=== PATIENT | female | born 1980 | race Caucasian/White ===

== ENCOUNTER → 2017-09-20 | Outpatient (CLI) | payer OTHER ==
--- NOTE | 2017-09-21 08:57 | MM ---
Reason for exam: clinical finding. Last mammogram was performed 6 years and 4 months ago. History: Patient had first child at age 29. Indicated problem(s): lump or thickening in both breasts. Physical Findings: Nurse did not find any significant physical abnormalities on exam. MG 3D Diag Mammo W/Cad JORGITO Bilateral CC and MLO view(s) were taken. Prior study comparison: May 07, 2011, CAD bilateral diagnostic mammogram. The breast tissue is extremely dense which could obscure a lesion on mammography. Stable benign calcifications. These results were verbally communicated with the patient and result sheet given to the patient on 09/20/17. ASSESSMENT: Probably benign, BI-RAD 3 RECOMMENDATION: Follow-up diagnostic mammogram and ultrasound of both breasts in 6 months.
--- NOTE | 2017-09-21 09:05 | USB ---
Reason for exam: clinical finding. History: Patient had first child at age 29. Indicated problem(s): lump or thickening in both breasts. US Breast BILAT Right breast ultrasound includes all four quadrants, the retroareolar region and axilla. Finding demonstrates a 1.1 x 0.7 x 0.9cm oval, cystic lesion at 9 o'clock and a 0.7 x 0.6 x 0.9cm oval, cystic lesion at 4 o'clock. Left breast ultrasound includes all four quadrants, the retroareolar region and axilla. Finding demonstrates a 0.5 x 0.4 x 0.5cm oval, cystic lesion at 2 o'clock, a 1.5 x 0.9 x 1.1cm oval, cystic lesion at 3 o'clock, a 1.1 x 0.5 x 1.5cm oval, cystic lesion at 6 o'clock and a 1.9 x 1.2cm oval, cystic cluster at 12 o'clock. These results were verbally communicated with the patient and result sheet given to the patient on 09/20/17. ASSESSMENT: Probably benign, BI-RAD 3 RECOMMENDATION: Follow-up diagnostic mammogram of both breasts in 6 months.
== END ==
LOC: RADMAMWWP 08:06
PROVIDERS: ATTEND Obstetrics & Gynecology
DX: N63.0 Unspecified lump in unspecified breast (principal)
CPT/HCPCS: 76641; G0204; G0279

== ENCOUNTER → 2018-06-12 | Outpatient (CLI) | payer OTHER ==
--- NOTE | 2018-06-12 11:45 | MM ---
Reason for exam: follow-up at short interval from prior study. Last mammogram was performed 9 months ago. History: Patient had first child at age 29. Took hormonal contraceptives for 3 years beginning at age 17. Physical Findings: Nurse Summary: 1cm nodule in the left breast at 1 o'clock (nurse ms). MG 3D Diag Mammo W/Cad JORGITO Bilateral CC, MLO, and XCCL view(s) were taken. Prior study comparison: September 20, 2017, bilateral MG 3d diag mammo w/cad J[facility]GITO. May 07, 2011, CAD bilateral diagnostic mammogram. The breast tissue is extremely dense which could obscure a lesion on mammography. Scattered benign punctate calcifications. Palpable marker lateral left breast. Subtle nodularity superior right MLO view anterior to middle depth best seen on 3D. These results were verbally communicated with the patient and result sheet given to the patient on 06/12/18. ASSESSMENT: Incomplete: need additional imaging evaluation, BI-RAD 0 RECOMMENDATION: Ultrasound of both breasts.
--- NOTE | 2018-06-12 11:52 | USB ---
Reason for exam: additional evaluation requested from abnormal screening. History: Patient had first child at age 29. Took hormonal contraceptives for 3 years beginning at age 17. US Breast BILAT Right complete breast ultrasound includes all four quadrants, the retroareolar region and axilla. Finding demonstrates a 0.7 x 0.3 x 1.1cm oval, cystic lesion at 7 o'clock, a 0.6 x 0.6 x 0.4cm cystic cluster at 1 o'clock and a 0.6 x 0.5 x 0.6cm oval, cystic lesion at 3 o'clock. Left complete breast ultrasound includes all four quadrants, the retroareolar region and axilla. Finding demonstrates a 1.9 x 0.6 x 1.4cm oval, cystic, palpable, benign lesion at 1 o'clock, a 1.4 x 0.9 x 0.9cm oval, cystic lesion at 3 o'clock and a 1.3 x 0.7 x 1.7cm oval, cystic lesion at 6 o'clock. These results were verbally communicated with the patient and result sheet given to the patient on 06/12/18. ASSESSMENT: Probably benign, BI-RAD 3 RECOMMENDATION: Follow-up diagnostic mammogram of both breasts in 1 year.
== END | disposition home or self-care (01) ==
LOC: RADMAMWWP 08:29
PROVIDERS: ATTEND Obstetrics & Gynecology
DX: R92.8 Other abnormal and inconclusive findings on diagnostic imaging of breast (principal)
CPT/HCPCS: 77062; 77066

== ENCOUNTER → 2020-10-15 | Outpatient (CLI) | payer OTHER ==
--- NOTE | 2020-10-15 14:02 | MM ---
Reason for exam: screening (asymptomatic). Last mammogram was performed 2 years and 4 months ago. History: Patient had first child at age 29. Took hormonal contraceptives for 3 years beginning at age 17. Physical Findings: A clinical breast exam by your physician is recommended on an annual basis and results should be correlated with mammographic findings. MG 3D Screening Mammo W/Cad Bilateral CC and MLO view(s) were taken. Prior study comparison: June 12, 2018, bilateral MG 3d diag mammo w/cad JORGITO. September 20, 2017, bilateral MG 3d diag mammo w/cad J[facility]GITO. The breast tissue is extremely dense which could obscure a lesion on mammography. There are benign appearing diffuse round calcifications bilaterally. There is no discrete abnormality. ASSESSMENT: Benign, BI-RAD 2 RECOMMENDATION: Routine screening mammogram of both breasts in 1 year. Some advise bilateral ultrasound is patient with extremely dense tissue.
== END | disposition home or self-care (01) ==
LOC: RADMAMWWP 09:00
PROVIDERS: ATTEND Obstetrics & Gynecology
DX: Z12.31 Encounter for screening mammogram for malignant neoplasm of breast (principal); Z80.3 Family history of malignant neoplasm of breast
CPT/HCPCS: 77063; 77067

== ENCOUNTER → 2023-06-24 | Outpatient (CLI) | payer OTHER ==
--- NOTE | 2023-06-27 08:21 | MM ---
Reason for Exam: Screening (asymptomatic). Last mammogram was performed 2 year(s) and 9 month(s) ago. Patient History: Menarche at age 12. First Full-Term at age 29. Late child-bearing (after 28). Patient has history of breast feeding. Hormonal Contraceptives for 3 years from age 17 until age 20. Last menstrual period: 06/08/2023 Risk Values: Shira 5 year model risk: 1.0%. NCI Lifetime model risk: 11.9%. Prior Study Comparison: 05/07/2011 Bilateral Diagnostic Mammogram, [facility]. 09/20/2017 Bilateral Diagnostic Mammogram, [facility]. 06/12/2018 Bilateral Diagnostic Mammogram, [facility]. 10/15/2020 Bilateral Screening Mammogram, [facility]. Tissue Density: The breast tissue is extremely dense which could obscure a lesion on mammography. Findings: Analyzed By CAD. There is no suspicious group of microcalcifications or new suspicious mass in either breast. Overall Assessment: Negative, BI-RAD 1 Management: Screening Mammogram of both breasts in [address] [facility] will attempt to contact patient to return for supplemental views and ultrasound if indicated. Patient should continue monthly self-breast exams. A clinical breast exam by your physician is recommended on an annual basis. This exam should not preclude additional follow-up of suspicious palpable abnormalities. Note on Shira scores and lifetime risk: 1. A Shira score greater than 3% is considered moderate risk. If this is the case, consider specialist referral to assess eligibility for a risk reducing agent. 2. If overall lifetime risk for the development of breast cancer is 20% or higher, the patient may qualify for future screening with alternating mammogram and breast MRI. Electronically signed and approved by: Juan Cope DO
== END | disposition home or self-care (01) ==
LOC: RADMAMWWP 09:27
PROVIDERS: ATTEND Obstetrics & Gynecology
DX: Z12.31 Encounter for screening mammogram for malignant neoplasm of breast (principal)
CPT/HCPCS: 77063; 77067